=== PATIENT | female | born 1955 | race Caucasian/White ===

== ENCOUNTER → 2023-12-26 10:21 | Outpatient (REF) | payer MEDICARE, OTHER, SELFPAY | LOC: RCS 10:21 | PROVIDERS: ATTENDING PHYSICIAN Internal Medicine; FAMILY PHYSICIAN Nurse Practitioner Family | DX: R00.2 Palpitations (principal) | CPT/HCPCS: 93225; 93226 ==

== ENCOUNTER → 2024-01-23 10:12 | Outpatient (REF) | payer MEDICARE, OTHER, SELFPAY | LOC: DHCBC MAIN 10:12 | PROVIDERS: ATTENDING PHYSICIAN Internal Medicine; FAMILY PHYSICIAN Nurse Practitioner Family | DX: I10 Essential (primary) hypertension (principal); R00.2 Palpitations | CPT/HCPCS: 93306 ==

== ENCOUNTER → 2024-02-12 11:39 | Outpatient (REF) | payer MEDICARE, OTHER, SELFPAY | LOC: REG 11:39 | PROVIDERS: ATTENDING PHYSICIAN Nurse Practitioner Family | DX: J40 Bronchitis, not specified as acute or chronic (principal) | CPT/HCPCS: 71046 ==

== ENCOUNTER → 2024-03-27 12:54 | Outpatient (REF) | payer MEDICARE, OTHER, SELFPAY | LOC: RAD 12:54 | PROVIDERS: ATTENDING PHYSICIAN Nurse Practitioner Family | DX: R22.1 Localized swelling, mass and lump, neck (principal); R59.0 Localized enlarged lymph nodes; Z00.00 Encounter for general adult medical examination without abnormal findings | CPT/HCPCS: 73030; 76536; 76882 ==

== ENCOUNTER → 2024-04-15 10:30 | Outpatient (REF) | payer MEDICARE, OTHER, SELFPAY | LOC: WDC 10:30 | PROVIDERS: ATTENDING PHYSICIAN Nurse Practitioner Family | DX: Z12.31 Encounter for screening mammogram for malignant neoplasm of breast (principal) | CPT/HCPCS: 77063; 77067 ==

== ENCOUNTER → 2024-06-01 06:44 | Day surgery (SDC) | payer MEDICARE, OTHER, SELFPAY | LOC: GI 06:44 | PROVIDERS: ATTENDING PHYSICIAN Internal Medicine | DX: Z12.11 Encounter for screening for malignant neoplasm of colon (principal); K64.9 Unspecified hemorrhoids; K57.30 Diverticulosis of large intestine without perforation or abscess without bleeding; Z86.010 Personal history of colon polyps | CPT/HCPCS: G0105 ==

== ENCOUNTER → 2024-06-17 10:14 | Outpatient (REF) | payer MEDICARE, OTHER, SELFPAY ==
[2024-06-17 10:41] VITALS: BP 136/98; BP_SYST 88
== END ==
LOC: RADI 10:14
PROVIDERS: ATTENDING PHYSICIAN Nurse Practitioner Family
DX: E04.1 Nontoxic single thyroid nodule (principal)
CPT/HCPCS: 88173; 10005

== ENCOUNTER 2024-07-15 06:08 | Day surgery (SDC) | payer MEDICARE, OTHER, SELFPAY ==
[2024-07-15 06:08] VITALS: BMI 35.0
[2024-07-15 06:23] VITALS: BMI 35.0
[2024-07-15 06:24] VITALS: BP 131/80
[2024-07-15] MEDS: TYLENOL 1000 MG PO (06:40)
[2024-07-15] MEDS: NORMOSOL-R/PLASMALYTE-A 1000 IV (06:52)
[2024-07-15 08:32] VITALS: BP 140/70
[2024-07-15 08:45] VITALS: BP 135/75
[2024-07-15 09:00] VITALS: BP 131/78
== END 2024-07-15 09:20 | disposition home or self-care (01) ==
LOC: SDS 06:08
PROVIDERS: ATTENDING PHYSICIAN Surgery
DX: D17.79 Benign lipomatous neoplasm of other sites (principal); L08.9 Local infection of the skin and subcutaneous tissue, unspecified
CPT/HCPCS: 24071; 88304

== ENCOUNTER → 2025-03-15 13:24 | Outpatient (REF) | payer MEDICARE, OTHER, SELFPAY | LOC: RAD 13:24 | PROVIDERS: ATTENDING PHYSICIAN Nurse Practitioner Family; FAMILY PHYSICIAN Family Medicine | DX: E04.2 Nontoxic multinodular goiter (principal); E06.3 Autoimmune thyroiditis | CPT/HCPCS: 76536 ==

== ENCOUNTER → 2025-04-21 15:07 | Outpatient (REF) | payer MEDICARE, OTHER, SELFPAY | LOC: WDC 15:07 | PROVIDERS: ATTENDING PHYSICIAN Obstetrics & Gynecology; FAMILY PHYSICIAN Nurse Practitioner Family | DX: Z12.31 Encounter for screening mammogram for malignant neoplasm of breast (principal) | CPT/HCPCS: 77063; 77067 ==

== ENCOUNTER → 2025-05-10 09:54 | Outpatient (REF) | payer MEDICARE, OTHER, SELFPAY | LOC: WDC 09:54 | PROVIDERS: ATTENDING PHYSICIAN Obstetrics & Gynecology; FAMILY PHYSICIAN Nurse Practitioner Family | DX: R92.8 Other abnormal and inconclusive findings on diagnostic imaging of breast (principal) | CPT/HCPCS: 76642 ==